=== PATIENT | female | born 1965 | race Caucasian/White ===

== ENCOUNTER 2017-03-29 19:29 | Observation (INO) | payer MEDICAID ==
[~2017-03-29] VITALS: Ht 180.3 cm; Wt 69.2 kg
[~2017-03-29 19:29] MED LIST: AMOX1TAB64 PO; IBUP400T PO; OXYC-302 PO; OXYC5CAP4 PO
[2017-03-29] MEDS ORDERED: MORPHINE SULFATE 4 MG/ML, 1ML ONE (20:08)
[2017-03-29] MEDS: MORPHINE SULFATE 4 MG/ML, 1ML IVPush PRN ×2 (20:12→22:28)
[2017-03-29] MEDS ORDERED: ONDANSETRON 2MG/ML, 2ML IVPush ONE (20:30)
[2017-03-29] MEDS ORDERED: ASPIRIN 81 MG TABLET CHEW PO ONE (20:30)
[2017-03-29 20:33] LABS: ASPARTATE AMINO TRANSFERASE 17 U/L (15-37); BLOOD UREA NITROGEN 16 mg/dL (7-18)
[2017-03-29 20:38] LABS: IS PT STATUS REG ER OR PRE ER? YES
[2017-03-29] MEDS ORDERED: BISACODYL 10 MG SUPP PR PRN (21:30)
[2017-03-29] MEDS ORDERED: ENOXAPARIN 40 MG/0.4 ML SQ SCH (21:30)
[2017-03-29] MEDS ORDERED: ACETAMINOPHEN 325 MG TABLET PO PRN (21:30)
[2017-03-29] MEDS ORDERED: NITROGLYCERIN 0.4 MG BOTTLE (25 TABS) SL PRN (21:30)
[2017-03-29] MEDS ORDERED: DOCUSATE 100 MG CAPSULE PO PRN (21:30)
[2017-03-29] MEDS ORDERED: LABETALOL 5MG/ML, 20ML IVPush PRN (21:30)
[2017-03-29] MEDS ORDERED: POLYETHYLENE GLYCOL 17 GM PACKET PO PRN (21:30)
[2017-03-29] MEDS ORDERED: KETOROLAC 30 MG/1 ML IVPush PRN (21:30)
[2017-03-29] MEDS ORDERED: ONDANSETRON 2MG/ML, 2ML IVPush PRN (21:30)
[2017-03-29] MEDS ORDERED: HYDROcodone/APAP 5/325 TABLET PO PRN (21:30)
[2017-03-29] MEDS ORDERED: morphine SULFATE 10 MG/ML, 1ML IVPush PRN (21:30)
[2017-03-29 22:47] VITALS: BP 98/67
[2017-03-30 02:19] VITALS: BP 92/61
[2017-03-30 02:48] LABS: IS PT STATUS REG ER OR PRE ER? NO
[2017-03-30] MEDS ORDERED: ASPIRIN 325 MG TABLET EC PO SCH (06:00)
[2017-03-30 06:55] VITALS: BP 90/57
[2017-03-30 08:20] VITALS: BP 93/59
[2017-03-30] MEDS ORDERED: SODIUM CHLORIDE FLUSH 10ML SYR IVF SCH (09:00)
[2017-03-30] MEDS ORDERED: REGADENOSON 0.4 MG/5 ML SYRINGE ONE (09:10)
[2017-03-30 09:24] VITALS: BP 105/73
[2017-03-30 10:13] LABS: IS PT STATUS REG ER OR PRE ER? NO
[2017-03-30 13:49] VITALS: BP 96/63
== END 2017-03-30 15:30 | disposition home or self-care (01) ==
LOC: ED 19:57 → EDIP 21:15 → 5SO 23:31 → DCLOUNGE 03-30 15:30
PROVIDERS: ADMIT Internal Medicine; ATTEND Internal Medicine
DX: R07.89 Other chest pain (principal); I10 Essential (primary) hypertension; F12.10 Cannabis abuse, uncomplicated; F17.210 Nicotine dependence, cigarettes, uncomplicated; Z85.820 Personal history of malignant melanoma of skin; Z79.82 Long term (current) use of aspirin; Z87.01 Personal history of pneumonia (recurrent)
CPT/HCPCS: 36415; 71010; 78452; 80053; 80061; 84484; 85025; 85379; 93005; 93017; 96372; 96374; 96375; 99285; A9502; C9898; G0378; J1650; J1885; J2785

== ENCOUNTER 2018-12-17 15:19 | Emergency (ER) | payer MEDICAID, OTHER ==
[~2018-12-17] VITALS: Ht 180.3 cm; Wt 72.7 kg
[~2018-12-17 15:19] MED LIST changes: +IBUP-1221 PO; -IBUP400T PO; +OXYC5CAP2 PO; -OXYC5CAP4 PO
[2018-12-17 16:27] LABS: BASOPHILS # (AUTO) 0.04 x10^3/uL (0-0.1); BASOPHILS % (AUTO) 1 % (0-1); EOSINOPHILS # (AUTO) 0.53 x10^3/uL (0-0.4); EOSINOPHILS % (AUTO) 6 % (1-7); LYMPHOCYTES # (AUTO) 1.27 x10^3/uL (1-3.4); LYMPHOCYTES % (AUTO) 14 % (22-44); MD NO; MEAN CORPUSCULAR HEMOGLOBIN 30.7 pg (27.0-34.8); MEAN CORPUSCULAR HGB CONC 33.7 g/dL (32.4-35.8); MEAN CORPUSCULAR VOLUME 91.3 fL (80-100); MEAN PLATELET VOLUME 9.3 fL (7.4-10.4); MONOCYTES # (AUTO) 0.51 x10^3/uL (0.2-0.8); MONOCYTES % (AUTO) 6 % (2-9); NEUTROPHILS # (AUTO) 6.94 x10^3/uL (1.8-6.8); NEUTROPHILS % (AUTO) 75 % (42-75); PLATELET COUNT 259 x10^3/uL (130-400); RED BLOOD COUNT 4.49 x10^6/uL (3.82-5.3); RED CELL DISTRIBUTION WIDTH 14.3 % (9.6-15.2)
[2018-12-17 16:36] LABS: ALBUMIN 4.1 g/dL (3.4-5.0); ANION GAP 4 mmol/L (5-15); CALCIUM 8.9 mg/dL (8.5-10.1); CHLORIDE 107 mmol/L (98-107); CREATININE 0.98 mg/dL (0.55-1.02)
--- NOTE | 2018-12-17 16:53 | NUR ---
TO ROOM FROM LOBBY. NAD.
--- NOTE | 2018-12-17 18:26 | NUR ---
PRESENTS FROM HOME W/ YELLOWISH-GREEN VAGINAL DISCHARGE/PAIN X 2 DAYS. WOULD LIKE EXAM SHE IS SUSPECT OF HER BOYFRIEND. REPORTS SHE HAD STI SCREEN AT [facility] ON THURSDAY WITH ALL NEGATIVE RESULTS
--- NOTE | 2018-12-17 18:27 | NUR ---
PATIENT APPEARS COMFORTABLE, VSS. RESTING IN BED WITH CALL BENZ IN HAND. UPDATED ON ESTIMATED POC (BUSY DAY-STILL NEED EXAM AND RESULTS OF EXAM SPECIMENS WELL URINE.) REPORTS SHE COULD NOT BE HER LAST CYCLE 12 YEARS AGO
[2018-12-17 18:52] LABS: HCG UR SG 1.017 (1.003-1.030); MICROSCOPIC AUTO
[2018-12-17 18:53] LABS: CULTURE INDICATED? YES
--- NOTE | 2018-12-17 18:58 | NUR ---
TASK RN: WET PREP LABS WALKED TO LAB.
[2018-12-17] MEDS ORDERED: AZITHROMYCIN 250 MG TABLET PO ONE (19:00)
[2018-12-17] MEDS ORDERED: CEFTRIAXONE 250 MG IM ONE (19:00)
[2018-12-17] MEDS ORDERED: AZITHROMYCIN 500 MG TABLET ONE (19:17)
[2018-12-17] MEDS ORDERED: CEFTRIAXONE 250 MG ONE (19:17)
[2018-12-17] MEDS ORDERED: LIDOCAINE-MPF 1%, 2ML ONE (19:17)
[2018-12-17 19:34] LABS: CLUE CELLS NONE SEEN (NONE SEEN); WET PREP WBCS MANY (FEW)
--- NOTE | 2018-12-17 19:37 | NUR ---
PATIENT CONTINUES TO REPORT VAGINAL DISCOMFORT. REPORTS "I FEEL BETTER AFTER THE EXAM THE MD KNOWS WHATS GOING ON. VSS. CALL BENZ IN HAND. ADMINISTERED ABX. GIVEN PO FLUIDS/SOLIDS. WILL CONTINUE TO MONITOR. UPDATED ON PROBABLE DISPO
[2018-12-17 19:39] VITALS: BP 112/73
--- NOTE | 2018-12-17 19:59 | NUR ---
CARE ASSUMED FOR DC. PT DC'D HOME WITH RX X 1 AND UNDERSTANDING OF INSTRUCTIONS. PT ESCORTED TO DC DESK, GAIT STEADY.
[2018-12-17] MEDS ORDERED: LIDOCAINE 1%, 2ML INFIL ONE (20:00)
== END 2018-12-17 20:01 | disposition home or self-care (01) ==
LOC: ED 19:18
DX: N89.8 Other specified noninflammatory disorders of vagina (principal)
CPT/HCPCS: 36415; 80048; 81001; 81025; 82040; 85025; 87077; 87086; 87186; 87210; 87491; 87591; 87808; 96372; 99283; J0696; J3490